=== PATIENT | female | born 1975 | race Caucasian/White ===

== ENCOUNTER 2017-04-14 09:52 | Emergency (ER) | payer OTHER ==
[2017-04-14 10:10] VITALS: TEMP 97.9
[2017-04-14 10:56] LABS: Amphetamine Screen,Urine Not Detected (NotDetected); Barbiturate Screen,Urine Not Detected (NotDetected); Benzodiazepines Screen,Urine Not Detected (NotDetected); Cocaine Screen,Urine Not Detected (NotDetected); Methadone Screen, Urine Not Detected (NotDetected); Opiate Screen,Urine Not Detected (NotDetected); Oxycodone Screen, Urine Not Detected (NotDetected); Phencyclidine Screen,Urine Not Detected (NotDetected); Tricyclic Antidepressant,Urine Not Detected (NotDetected); Urn Cannabinoid Scrn Detected (NotDetected)
--- NOTE | 2017-04-14 10:57 | ED ---
General Adult HPI - General Chief complaint: Psychiatric Symptoms Stated complaint: suicidal Time Seen by Provider: 04/14/17 10:18 Source: patient, RN notes reviewed Mode of arrival: ambulatory Limitations: no limitations - History of Present Illness Initial comments: Chief complaint and history of present illness a 42-year-old female here with a complaint of depression. Not suicidal. She is with a friend who she wanted to be in the room during the discussion and also agreed that at this friend want to mention anything she could. Did not mention anything. Patient reports she's been depressed "" her whole life. But more so these past 2 years. She had a divorce and then went through a bad relationship. - Related Data Home Medications Medication Instructions Recorded Confirmed Ibuprofen [Motrin Ib] 200 - 400 mg PO Q6H PRN 04/14/17 04/14/17 Allergies Allergy/AdvReac Type Severity Reaction Status Date / Time No Known Allergies Allergy Verified 04/14/17 10:36 Review of Systems ROS Statement: Those systems with pertinent positive or pertinent negative responses have been documented in the HPI. Review of systems no headache no stiff neck no sore throat no visual acuity changes no chest pain shortness breath GI/ problems. Emotionally the patient reports she is depressed, for a long time, more so lately. All systems are reviewed Past medical problems none. Surgeries cholecystectomy. Family history mother had Parkinson's. Patient denies ALLERGIES. She does smoke she was encouraged to stop. Drinks alcohol 2 or 3 drinks every third night. Occasional use of marijuana. ROS Other: All systems not noted in ROS Statement are negative. Past Medical History Past Medical History: No Reported History History of Any Multi-Drug Resistant Organisms: None Reported Past Surgical History: Cholecystectomy Past Psychological History: No Psychological Hx Reported Smoking Status: Current every day smoker Past Alcohol Use History: Occasional Past Drug Use History: Marijuana General Exam - General Exam Comments Initial Comments: General: The patient is awake and alert, depressed, not suicidal. Vital signs temperature 97.9 pulse 82 or 3 rate 16 pulse ox on percent room air blood pressure 115/81 Eye: Pupils are equal, round and reactive to light, extra-ocular movements are intact ; there is normal conjunctiva bilaterally. No signs of icterus. Ears, nose, mouth and throat: There are moist mucous membranes and no oral lesions. Neck: The neck is supple, there is no tenderness, no anterior cervical lymphadenopathy , thyroid not enlarged. Cardiovascular: There is a regular rate and rhythm. No murmur, rub or gallop is appreciated. Respiratory: Lungs are clear to auscultation, respirations are non-labored, breath sounds are equal. No wheezes, stridor, rales, or rhonchi. Gastrointestinal: Soft, non-distended, non-tender abdomen without masses or organomegaly noted. There is no rebound or guarding present. No CVA tenderness. Bowel sounds are unremarkable. Back: There is no tenderness to palpation in the midline. Musculoskeletal: Normal ROM, no tenderness, There is no pedal edema. There is no calf tenderness or swelling. Sensation intact. Pulses equal bilaterally 2+. Neurological: No complaint of numbness tingling no neuro deficits complained of. Skin: Skin is warm and dry and no rashes or lesions are noted. Psychiatric: Cooperative, flat affect, complains of being depressed. Not suicidal but states she would just rather stay in her house . States she would just as well stay in her house and never have to deal with anything or anyone, hopefully all her problems would go away if she was unable to do that. Limitations: no limitations Course Vital Signs 04/14/17 10:06 Temperature 97.9 F Pulse Rate 82 Respiratory 16 Rate Blood Pressure 115/81 O2 Sat by Pulse 100 Oximetry Medical Decision Making - Medical Decision Making Medical decision making; is a 42-year-old female here with a friend. The patient's here because of depression ongoing for several years. Patient's drug triage is positive for marijuana. The patient met with the psychiatric nurse. She spoke with the psychiatrist and the plant this time the patient follow up with outpatient referrals. The patient is not suicidal. Agrees to the plan. Be released with a friend. Advised to return emergency room as needed. - Lab Data Lab Results 04/14/17 Range/Units 10:28 Urine Opiates Screen Not Detected (NotDetected) Ur Oxycodone Screen Not Detected (NotDetected) Urine Methadone Screen Not Detected (NotDetected) Ur Propoxyphene Screen Not Detected (NotDetected) Ur Barbiturates Screen Not Detected (NotDetected) U Tricyclic Antidepress Not Detected (NotDetected) Ur Phencyclidine Scrn Not Detected (NotDetected) Ur Amphetamines Screen Not Detected (NotDetected) U Methamphetamines Scrn Not Detected (NotDetected) U Benzodiazepines Scrn Not Detected (NotDetected) Urine Cocaine Screen Not Detected (NotDetected) U Marijuana (THC) Screen Detected H (NotDetected) Disposition Clinical Impression: Depression Disposition: HOME SELF-CARE Condition: Fair Instructions: Depression (ED) Additional Instructions: Follow-up with your family doctor, follow up with outpatient referrals to community mental health. Return emergency room if you have any changes in the way you feel. Referrals: Brittany Murray MD [Primary Care Provider] - 1-2 days Time of Disposition: 14:02
[2017-04-14 14:31] VITALS: BP 124/76; PULSE 74; RESP 18
== END 2017-04-14 14:27 | disposition home or self-care (01) ==
LOC: EC 09:52
DX: F32.9 Major depressive disorder, single episode, unspecified (principal); F17.200 Nicotine dependence, unspecified, uncomplicated
CPT/HCPCS: 80306; 82075; 99284

== ENCOUNTER → 2018-07-09 | Outpatient (CLI) | payer OTHER ==
--- NOTE | 2018-07-09 14:22 | US ---
EXAMINATION TYPE: US pelvis complete transvag DATE OF EXAM: 07/09/2018 COMPARISON: NONE CLINICAL HISTORY: N92.1 Excessive and frequent menstruation with irr. Irregular cycles TECHNIQUE: . Transabdominal sonographic images of the pelvis were acquired. Transvaginal sonographi c images were medically necessary to better assess the following anatomy: Uterus and ovaries Date of LMP: Unsure of actual date, around the first week of June EXAM MEASUREMENTS: Uterus: 10.9 x 4.8 x 5.8 cm Endometrial Stripe: 0.3 cm Right Ovary: 4.3 x 3.6 x 3.5 cm Left Ovary: Not visualized 1. Uterus: Anteverted Heterogeneous 2. Endometrium: wnl 3. Right Ovary: Cystic area visualized measuring 3.8 x 2.8 x 3.1 cm 4. Left Ovary: Not visualized Spectral, color and waveform doppler imaging shows good arterial and venous flow within the right o vary; there is no evidence for ovarian torsion in the right ovary. 5. Bilateral Adnexa: wnl 6. Posterior cul-de-sac: Small amount of fluid visualized IMPRESSION: 1. Uterus is heterogeneous in appearance without discrete fibroid is a nonspecific finding. 2. There is a 3.8 cm right ovarian cyst. Follow-up to resolution in 6-8 weeks recommended. 3. Incidental note made of a small amount of free fluid pelvis
== END | disposition home or self-care (01) ==
LOC: RADUSWWP 13:23
PROVIDERS: ATTEND Internal Medicine
DX: N83.201 Unspecified ovarian cyst, right side (principal); N92.1 Excessive and frequent menstruation with irregular cycle
CPT/HCPCS: 76830; 76856

== ENCOUNTER → 2018-09-05 | Outpatient (CLI) | payer OTHER | END | disposition home or self-care (01) | LOC: LABWHC1 16:34 | PROVIDERS: ATTEND Obstetrics & Gynecology | DX: N93.8 Other specified abnormal uterine and vaginal bleeding (principal) | CPT/HCPCS: 36415; 82670; 83001; 83002; 84146; 84439; 84443; 84479 ==